=== PATIENT | male | born 1995 | race Caucasian/White ===

== ENCOUNTER 2019-04-17 19:13 | Emergency (ER) | payer SELFPAY ==
[~2019-04-17] VITALS: Ht 162.6 cm; Wt 115.5 kg
[~2019-04-17 19:13] MED LIST: NORCO 325 MG-51 TAB PO; ZOFRAN 4MG T4 MG/TAB PO
[2019-04-17 19:27] VITALS: BP 156/88; TEMP 98
[2019-04-17 22:16] VITALS: PULSE 84
== END 2019-04-17 22:16 | disposition home or self-care (01) ==
LOC: COL.ER 19:13
DX: S69.91XA Unspecified injury of right wrist, hand and finger(s), initial encounter (principal); W23.0XXA Caught, crushed, jammed, or pinched between moving objects, initial encounter; Y92.59 Other trade areas as the place of occurrence of the external cause